=== PATIENT | male | born 1980 | race Caucasian/White ===

== ENCOUNTER 2017-12-02 19:49 | Observation (INO) | payer SELFPAY ==
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
[2017-12-02] MEDS ORDERED: ONDANSETRON 4 MG/2 ML VIAL ONE (21:14)
[2017-12-02] MEDS ORDERED: HYDROmorphONE/DILAUDID 1 MG/ML INJ ONE (21:14)
[2017-12-02] MEDS ORDERED: PROCHLORPERAZINE MALEATE 5 MG TAB PO PRN (21:21)
[2017-12-02] MEDS ORDERED: ONDANSETRON DISINTEGRATING 4 MG TAB PO PRN (21:21)
[2017-12-02] MEDS ORDERED: ACETAMINOPHEN 325 MG TAB PO PRN (21:21)
[2017-12-02] MEDS ORDERED: ONDANSETRON 4 MG/2 ML VIAL IVP ONE (21:29)
[2017-12-02] MEDS ORDERED: HYDROmorphONE/DILAUDID 1 MG/ML INJ IVP ONE (21:29)
[2017-12-02] MEDS ORDERED: NS 1,000 ML IV SCH (21:30)
[2017-12-02] MEDS: HYDROCODONE/APAP 5/325 TAB PO PRN (22:41)
[2017-12-03] MEDS: HYDROCODONE/APAP 5/325 TAB PO PRN (05:24)
[2017-12-03 05:38] LABS: PLATELET COUNT 194 10^3/uL (150-400)
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
--- NOTE | 2017-12-03 09:23 | ASMTLACE ---
LACE Length of stay for Answers: Less than 1 day current admission Acuity / Level of Answers: No Care: Did the patient have an inpatient admission? # of Emergency department Answers: 1-2 visits in the last 6 months Score: 1 Date Signed: 12/03/2017 09:22 AM Electronically Signed By:Nela Ewing RN
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
[2017-12-03 09:33] VITALS: BP 128/69
== END 2017-12-03 09:35 | disposition home or self-care (01) ==
LOC: F2N 22:00
PROVIDERS: ADMIT Neurological Surgery; ATTEND Neurological Surgery
DX: S06.361A Traumatic hemorrhage of cerebrum, unspecified, with loss of consciousness of 30 minutes or less, initial encounter (principal); Z89.512 Acquired absence of left leg below knee; V19.3XXA Pedal cyclist (driver) (passenger) injured in unspecified nontraffic accident, initial encounter
CPT/HCPCS: 92523-GN; 97161-GP; G0378; J1170; J2405